=== PATIENT | female | born 1985 | race African-American/Black ===

== ENCOUNTER 2020-05-02 11:20 | Inpatient (IN) | payer MEDICAID ==
[~2020-05-02] VITALS: Ht 152.4 cm; Wt 48.5 kg
[2020-05-02] MEDS ORDERED: TRIA1TAB92 PO (11:38)
[2020-05-02] MEDS ORDERED: ONDA4TAB5 PO (11:38)
[2020-05-02] MEDS ORDERED: METR500T PO (11:38)
[2020-05-02] MEDS ORDERED: SODIUM CHLORIDE 0.9% 1,000 ML IV ONE (12:00)
[2020-05-02 12:19] LABS: CHLORIDE 105 mEq/L (98-107)
[2020-05-02 12:20] LABS: BASOPHILS % 0.5 % (0.0-2.0); EOSINOPHILS % 0.8 % (0.0-5.0); HEMATOCRIT. 37.7 % (36.0-48.0); HEMOGLOBIN. 11.8 g/dL (12.0-16.0); LYMPHOCYTES % 36.5 % (20.0-50.0); MEAN CORPUSCULAR HEMOGLOBIN 23.2 pg (28.0-32.0); MEAN PLATELET VOLUME 7.1 fl (7.4-10.4); MONOCYTES % 5.7 % (2.0-8.0); NEUTROPHILS % 56.5 % (40.0-76.0); PLATELET 362 x1000/uL (130-400); RED CELL DISTRIBUTION WIDTH 17.1 % (11.6-14.6)
[2020-05-02 12:30] LABS: HCG SCREEN NEGATIVE
[2020-05-02] MEDS ORDERED: MORPHINE SULFATE 4 MG/ML CPJ (NOT FOR IM USE) IV ONE ×3 (12:30→15:45)
[2020-05-02 12:50] LABS: CLARITY URINE CLOUDY (CLEAR); COLOR URINE YELLOW (YELLOW); KETONES URINE TRACE (NEGATIVE); LEUKOCYTE ESTERASE URINE TRACE (NEGATIVE); NITRITE URINE NEGATIVE (NEGATIVE); OCCULT BLOOD URINE 3+ (NEGATIVE); PROTEIN URINE TRACE (NEGATIVE); SPECIFIC GRAVITY URINE 1.033 (1.005-1.030)
[2020-05-02] MEDS ORDERED: DIPHENHYDRAMINE 25MG CAPSULE PO ONE (13:00)
[2020-05-02] MEDS ORDERED: ONDANSETRON HCL 4MG/2ML INJ IV ONE ×2 (13:00→15:45)
[2020-05-02 13:22] LABS: PROTHROMBIN TIME 10.8 sec (9.6-11.0)
[2020-05-02] MEDS ORDERED: CEFTRIAXONE 1 G PREMIX 50 ML IV NR (14:15)
[2020-05-02] MEDS ORDERED: METRONIDAZOLE 500 MG PREMIX 100 ML IV NR (14:30)
[2020-05-02] MEDS ORDERED: MORPHINE SULFATE 2 MG/ML CPJ (NOT FOR IM USE) IV PRN (20:45)
[2020-05-02] MEDS ORDERED: DIPHENHYDRAMINE 50MG CAPSULE PO PRN (20:45)
[2020-05-02 22:00] VITALS: BP 132/72
[2020-05-02] MEDS ORDERED: IBUP-2030 PO (23:38)
[2020-05-03] VITALS: BP 137/72
[2020-05-03] MEDS ORDERED: DIPHENHYDRAMINE 50MG CAPSULE PO PRN (00:15)
[2020-05-03] MEDS ORDERED: ONDANSETRON HCL 4MG/2ML INJ IV PRN (00:15)
[2020-05-03] MEDS: MORPHINE SULFATE 2 MG/ML CPJ (NOT FOR IM USE) IV PRN ×3 (01:42→10:36)
[2020-05-03] MEDS ORDERED: *PATIENT'S OWN MEDICATION STORAGE XX SCH (02:15)
[2020-05-03 04:00] VITALS: BP 126/58
[2020-05-03 08:00] VITALS: BP 109/69
[2020-05-03 12:00] VITALS: BP 127/72
[2020-05-03] MEDS: DIPHENHYDRAMINE 50MG/ML VIAL IV PRN ×2 (15:26→22:56)
[2020-05-03] MEDS: TRIAMTERENE/HYDROCHLOROTHIAZID 75/50MG TABLET PO SCH (15:30)
[2020-05-03 16:00] VITALS: BP 118/74
[2020-05-03 20:00] VITALS: BP 116/50
[2020-05-03] MEDS: DOCUSATE SODIUM 250MG CAPSULE PO SCH (22:56)
[2020-05-04] VITALS: BP 112/58
[2020-05-04 04:00] VITALS: BP 110/60
[2020-05-04 08:00] VITALS: BP_SYST 112; BP_SYST 141; BP_DIAS 56; BP_DIAS 80
[2020-05-04] MEDS: TRIAMTERENE/HYDROCHLOROTHIAZID 75/50MG TABLET PO SCH (09:16)
[2020-05-04] MEDS: DOCUSATE SODIUM 250MG CAPSULE PO SCH ×2 (09:16→16:52)
[2020-05-04] MEDS: MORPHINE SULFATE 2 MG/ML CPJ (NOT FOR IM USE) IV PRN (09:43)
[2020-05-04 12:00] VITALS: BP 112/56
[2020-05-04] MEDS ORDERED: DIPHENHYDRAMINE 50MG CAPSULE PO PRN (13:00)
[2020-05-04] MEDS ORDERED: LACTULOSE 20G/30ML UDC PO NR (13:00)
[2020-05-04] MEDS ORDERED: KETOROLAC 30MG/ML VIAL IV PRN (13:15)
[2020-05-04] MEDS ORDERED: TRAMADOL 50MG TABLET PO PRN (13:45)
[2020-05-04 16:00] VITALS: BP 126/65
[2020-05-04 17:00] VITALS: BP 127/82
[2020-05-04] MEDS ORDERED: TRAM50TA3 MT (17:01)
== END 2020-05-04 17:30 | disposition home or self-care (01) | DRG 532 ==
LOC: ER 11:20 → 6EST 17:54 → ENRESERV 21:05
PROVIDERS: ADMIT Internal Medicine; ATTEND Internal Medicine
DX: D25.9 Leiomyoma of uterus, unspecified (principal); I11.0 Hypertensive heart disease with heart failure; I50.9 Heart failure, unspecified; Z98.891 History of uterine scar from previous surgery; Z98.51 Tubal ligation status; Z79.899 Other long term (current) drug therapy; N93.9 Abnormal uterine and vaginal bleeding, unspecified; Z76.5 Malingerer [conscious simulation]; D50.0 Iron deficiency anemia secondary to blood loss (chronic); N39.0 Urinary tract infection, site not specified
CPT/HCPCS: 36415; 74176; 76830; 76856; 80053; 81003; 84703; 85025; 93005; 99285; J0696; J1200; J2270; J2405; J3490; J7030; Q0163